=== PATIENT | male | born 1980 | race Hispanic/Latino ===

== ENCOUNTER 2016-09-02 20:28 | Emergency (ER) | payer OTHER ==
[~2016-09-02] VITALS: Ht 165.1 cm; Wt 61.2 kg
[~2016-09-02 20:28] MED LIST: ENDOCET 325 MG-1 TA1 PO; HYDROCODONE/ACE1 TA1 PO
[2016-09-02 20:34] VITALS: BP 121/77
[2016-09-02] MEDS ORDERED: PERCOCET 5-3251 EACH PO (21:19)
--- NOTE | 2016-09-02 21:20 | ED NECK/BACK PAIN COMPLAINT ---
History of Present Illness General Chief Complaint: Low Back Pain/Injury Stated Complaint: LOW BACK PAIN Source: patient Exam Limitations: no limitations Vital Signs & Intake/Output Vital Signs & Intake/Output Vital Signs Date Time Temp Pulse Resp B/P B/P Pulse O2 O2 Flow FiO2 Mean Ox Delivery Rate 09/02 2104 Room Air 09/02 2033 98.1 84 18 121/77 97 Room Air ED Intake and Output 09/03 0000 09/02 1200 Intake Total Output Total Balance Patient 135 lb Weight Weight Reported by Patient Measurement Method Allergies Coded Allergies: NO KNOWN ALLERGIES (02/22/14) Reconcile Medications HYDROCODONE/ACETAMINOPHEN (Hydrocodon-Acetaminophen 5-325) 5 MG-325 MG TABLET 1 TAB PO Q6HR PRN PAIN OXYCODONE HCL/ACETAMINOPHEN (Endocet 5-325 Tablet) 5 MG-325 MG TABLET 1 TAB PO Q6H PRN PAIN Oxycodone HCl/Acetaminophen (Percocet 5-325 MG Tablet) 5 MG-325 MG TABLET 1 TAB PO BID PRN pain Triage Note: PT TO ED FOR EXACERBATION OF BACK PAIN, REPORTING HE INJURED HIS BACK AT WORK ON 08/19, IS BEING SEEN BY [facility] AND IS ALSO GOING TO PT. 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 DENIES ANY URINARY S/S. Triage Nurses Notes Reviewed? yes HPI: This patient is a 35-year-old male who presented to the emergency department today for evaluation of lower back pain. The patient reported that on August 19 she had an injury at work from twisting and lifting. He has been going to occupational medicine. He has been taking Flexeril and ibuprofen 600 mg without any relief of his symptoms. He reported that the pain is located in his right lower back and wraps around to his right hip. He denied any trauma to the area. The patient reported that last night the pain got to a 10 out of 10, sharp, and constant. He is requesting something stronger for the pain. No bowel or bladder incontinence. No saddle paresthesia. He denied any urinary burning, urgency, frequency, or blood in the urine. (FREDO BLOOD,RICH) Past History Travel History Traveled to [place] past 21 day No Medical History Any Pertinent Medical History? see below for history Neurological: NONE EENT: NONE Cardiovascular: NONE Respiratory: asthma Gastrointestinal: NONE Hepatic: NONE Renal: NONE Musculoskeletal: NONE Psychiatric: NONE Endocrine: NONE Blood Disorders: NONE Cancer(s): NONE Tetanus Vaccine: 02/22/14 Surgical History Surgical History: non-contributory Psychosocial History What is your primary language Wallisian Tobacco Use: Current Daily Use Daily Tobacco Use Amount/Type: => 5 Cigarettes daily ETOH Use: denies use Illicit Drug Use: denies illicit drug use Family History Hx Contributory? No (RICH YOO PA-C) Review of Systems Review of Systems Constitutional: Reports: no symptoms. Eyes: Reports: no symptoms. Ears, Nose, Throat, Mouth: Reports: no symptoms. Respiratory: Reports: no symptoms. Cardiovascular: Reports: no symptoms. Gastrointestinal/Abdominal: Reports: no symptoms. Musculoskeletal: Reports: see HPI. Skin: Reports: no symptoms. Neurological/Psychological: Reports: no symptoms. All Other Systems: Reviewed and Negative (RICH YOO PA-C) Physical Exam Physical Exam Neck: normal inspection, supple, full range of motion, normal alignment, no midline tenderness Comments: Well-developed well-nourished person in no acute distress HEENT: Head normocephalic, moist mucous membranes Neck: Supple, no lymphadenopathy Back: Normal gait. No midline tenderness. Right-sided lumbar paraspinal musculature tenderness Respiratory: No respiratory distress. Speaking in full sentences Extremities: No edema, full range of motion Neuro: Alert and oriented x3 Psych: Mood affect normal, normal memory normal judgment. Skin: Warm and dry, no rash on exposed skin (RICH YOO PA-C) Progress Differential Diagnosis: cauda equina syn, herniated disc, myofascial strain, pyelo/UTI, sciatica, spinal cord inj, thoracic outlet syn, T/L spine injury, ureterolithiasis Plan of Care: This patient is a 35-year-old male who presented for evaluation of lower back pain. Requesting medication for pain due to ineffectiveness of his Flexeril and ibuprofen. Patient is also requesting an orthopedic physician. Stable for discharge home and outpatient management. (RICH YOO PA-C) Departure Departure Disposition: HOME OR SELF CARE Condition: Stable Clinical Impression Primary Impression: Low back pain Qualifiers: Chronicity: unspecified Back pain laterality: right Sciatica presence: without sciatica Qualified Code: M54.5 - Low back pain Referrals: CORINNA Mejia,JAC HAYES (PCP/Family) ZULEMA ALBRECHT,SARAH Paez Additional Instructions: Continues to take previously prescribed medication as directed. You may also take the medication prescribed today for breakthrough pain as directed. Follow- up with the orthopedic physician whose information has been provided to you in this packet. Return for any worsening symptoms or concerns. Departure Forms: Customer Survey General Discharge Information Prescriptions: Current Visit Scripts Oxycodone HCl/Acetaminophen (Percocet 5-325 MG Tablet) 1 TAB PO BID PRN pain #8 TAB (RICH YOO PA-C) PA/HOB GRINDER Co-Sign Statement Statement: ED Attending supervision documentation- [] I saw and evaluated the patient. I have also reviewed all the pertinent lab results and diagnostic results. I agree with the findings and the plan of care as documented in the PA's/HOB GRINDER's documentation. [X] I have reviewed the ED Record and agree with the PA's/HOB GRINDER's documentation. [] Additions or exceptions (if any) to the PAs/HOB GRINDER's note and plan are summarized below: [] (LEÓN ALBRECHT,LIUDMILA)
== END 2016-09-02 21:28 ==
LOC: ERH 20:28
DX: M54.5 Low back pain (principal)